=== PATIENT | male | born 1980 | race Caucasian/White ===

== ENCOUNTER 2016-11-25 05:39 | Outpatient (CLI) | payer OTHER ==
[~2016-11-25] VITALS: Ht 180.3 cm; Wt 86.2 kg
[2016-11-25] MEDS ORDERED: OMEP40CA36 PO (14:13)
== END 2016-11-25 14:22 ==
LOC: PREOP 05:39
PROVIDERS: ATTEND Surgery
DX: Z01.818 Encounter for other preprocedural examination (principal); Z11.2 Encounter for screening for other bacterial diseases; K21.9 Gastro-esophageal reflux disease without esophagitis; Z86.010 Personal history of colon polyps

== ENCOUNTER → 2016-11-29 | Day surgery (SDC) | payer OTHER ==
[~2016-11-29] VITALS: Ht 180.3 cm; Wt 86.2 kg
[~2016-11-29] MED LIST: HURRICAINE EXT TUBE (BENZOCAINE) ONE; HURRICAINE EXT TUBE (BENZOCAINE) XX PRN; MIDAZOLAM 2 MG/2 ML (VERSED) VIAL ONE; NS IV 500 ML 500 ML IV SCH; OMEP40CA36 PO; ONDANSETRON 4 MG/2 ML (SDV) Z0FRAN IVP ONE; ONDANSETRON 4 MG/2 ML (SDV) Z0FRAN ONE; fentaNYL INJECTION 100 MCG/2 ML AMP ONE
[2016-11-29 07:31] VITALS: BP 128/78
[2016-11-29] MEDS: fentaNYL INJECTION 100 MCG/2 ML AMP IVP PRN ×4 (08:02→08:20)
[2016-11-29] MEDS: MIDAZOLAM 2 MG/2 ML (VERSED) VIAL IVP PRN ×4 (08:03→08:17)
--- NOTE | 2016-11-29 08:07 | History & Physicial ---
History of Present Illness History of Present Illness Reason for visit/HPI to undergo an upper endoscopy regarding symptoms of reflux disease along with epigastric pain and concomitant colonoscopy for polyp surveillance. No family history of polyps or colon cancer. Date of Admission Date Seen by Provider: Nov 29, 2016 Time Seen by Provider: 08:05 I consulted on this patient on 11/29/16 08:05 Attending Physician Rancho Ramsay MD Admitting Physician Edyta Lindsay DO Consult Allergies and Home Medications Allergies Coded Allergies: No Known Drug Allergies (Unverified , 11/25/16) Home Medications Omeprazole 40 Mg Capsule.dr, 40 MG PO DAILY, (Reported) Past Votvvsv-Izncbd-Ghuhpi Hx Patient Social History Marrital Status: Employed/Student: employed Alcohol Use: Denies Use Recreational Drug Use: No Smoking Status: Former Smoker Recent Foreign Travel: No Contact w/other who traveled: No Recent Hopitalizations: No Immunizations Up To Date Date of Influenza Vaccine: Feb 02, 2016 Seasonal Allergies Seasonal Allergies: No Surgeries HX Surgeries: Yes (WISDOM TEETH) Respiratory Hx Respiratory Disorders: No Cardiovascular Hx Cardiovascular Disorders: No Neurological Hx Neurological Disorders: No Reproductive System Hx Reproductive Disorders: No Sexually Transmitted Disease: No HIV/AIDS: No Genitourinary Hx Genitourinary Disorders: No Gastrointestinal Hx Gastrointestinal Disorders: Yes Gastrointestinal Disorders: Gastroesophageal Reflux, Polyps Musculoskeletal Hx Musculoskeletal Disorders: No Endocrine Hx Endocrine Disorders: No HEENT HX ENT Disorders: No Loss of Vision: Denies Hearing Impairment: Denies Cancer Hx Cancer: No Psychosocial Hx Psychiatric Problems: No Integumentary HX Skin/Integumentary Disorder: No Blood Transfusions Hx Blood Disorders: No Adverse Reaction to a Blood Tr: No (N/A) Constitutional: no symptoms reported EENTM: no symptoms reported Respiratory: no symptoms reported Cardiovascular: no symptoms reported Gastrointestinal: abdominal pain (RUQ), heartburn Genitourinary: no symptoms reported Musculoskeletal: no symptoms reported Skin: no symptoms reported Psychiatric/Neurological: No Symptoms Reported Physical Exam Vital Signs Vital Sign - Last 12Hours 11/29/16 07:31 Temp 96.7 Pulse 71 Resp 20 B/P (MAP) 128/78 Pulse Ox 100 O2 Delivery Room Air Capillary Refill : General Appearance: No Apparent Distress HEENT: Normal ENT Inspection Neck: Normal Inspection Respiratory: Lungs Clear Cardiovascular: Regular Rate, Rhythm Gastrointestinal: Non Tender, Soft Rectal: Deferred Extremity: Normal Inspection Neurologic/Psychiatric: Alert, Oriented x3 Skin: Warm/Dry Assessment/Plan Assessment and Plan gentleman with symptoms of gastroesophageal reflux disease and a personal history of polyps. Details of upper endoscopy and colonoscopy reviewed thoroughly. Iatrogenic perforation and post polypectomy bleeding discussed in detail. Seems to be in agreement to proceed. Problems: RANCHO RAMSAY MD Nov 29, 2016 8:07 am
--- NOTE | 2016-11-29 08:07 | Conscious Sedation/ASA ---
Conscious Sedation Pre-Proced Time Reviewed: 08:07 ASA Class: 2 Airway Mallampati Classification: ([place] appropriate class) I. II. III, IV Lungs Heart ASA score ASA 1: a normal healthy patient ASA 2: a patient with a mild systemic disease (mid diabetes, controlled hypertension, obesity ASA 3: a patient with a severe systemic disease that limits activity (angina , COPD, prior Myocardial infarction) ASA 4: a patient with an incapacitating disease that is a constant threat to life (CHF, renal failure) ASA 5: a moribund patient not expected to survive 24 hrs. (ruptured aneurysm) ASA 6: a declared brain patient whose organs are being harvested. For emergent operations, add the letter E after the classification Grade 1 Sedation Plan: Discussed options with patient/fam Note The patient is an appropriate candidate to undergo the planned procedure, sedation, and anesthesia. The patient immediately re-assessed prior to indication. RANCHO JACKSON MD Nov 29, 2016 8:07 am
--- NOTE | 2016-11-29 08:35 | Endo Procedure Record ---
Endo Procedure Report Date of Procedure Nov 29, 2016 Surgeon (s) RANCHO JACKSON MD Post Procedure/Op Diagnosis EGD: Grade 2 esophagitis and distal gastritis Normal colonoscopy Procedure Performed EGD with biopsy of GE junction and antrum. Colonoscopy to cecum Description of Procedure Anesthesia Type: Conscious Sedation Specimen(s) collected/removed antral mucosa and mucosa of GE junction Description of the Procedure Indication for procedure: This gentleman came in for an endoscopic assessment of symptoms of reflux disease, along with concomitant colonoscopy regarding a personal history of polyps in the past. Informed consent was obtained after reviewing the procedures in detail. Description of the procedures: EGD: He was placed in left lateral decubitus position and his vital signs were monitored. Conscious sedation was achieved using Versed and fentanyl. The flexible gastroscope was introduced down the esophagus, past the stomach, into the proximal duodenum. Findings: Esophagus: Grade 2 esophagitis with a short hiatal hernia. Biopsy of the GE junction was obtained to rule out Krishnamurthy's changes. Stomach: Mild distal gastritis. Biopsy was obtained for Helicobacter status. Proximal duodenum: Normal. He tolerated the procedure well and was turned around in preparation for colonoscopy. Impression: Symptoms of reflux disease. Grade 2 esophagitis. Helicobacter status pending. Colonoscopy: Examination of the perianal area revealed external hemorrhoids and skin tags. Digital examination was unremarkable. The colonoscope was then introduced into the rectum and advanced all the way up to the cecum. Scope was then withdrawn slowly and the mucosa examined in a systematic fashion. There was no abnormality. He tolerated both procedures well and was taken to the nursing area in a stable condition. Impression: Personal history of polyps. No recurrence this time. Recommend repeating in 5 years. Copies To: NEYMAR MARES XAVIER M MD Nov 29, 2016 8:35 am
--- NOTE | 2016-11-29 08:37 | Discharge Inst-Simple/Standard ---
Discharge Inst-Standard Discharge Medications New, Converted or Re-Newed RX: Other Patient Instructions/Follow Up Plan of Care/Instructions/FU: increase omeprazole to twice a day. Repeat colonoscopy in 5 years. Activity as Tolerated: Yes Discharge Diet: No Restrictions RANCHO JACKSON MD Nov 29, 2016 8:37 am
[2016-11-29 08:50] VITALS: BP 119/71
[2016-11-29 09:40] VITALS: BP 118/78
[2016-11-29 09:50] VITALS: BP 118/78
== END ==
LOC: ENDO 06:30
PROVIDERS: ATTEND Surgery
DX: K21.0 Gastro-esophageal reflux disease with esophagitis (principal); K29.70 Gastritis, unspecified, without bleeding; Z86.010 Personal history of colon polyps; Z87.891 Personal history of nicotine dependence

== ENCOUNTER → 2016-11-30 | Outpatient (CLI) | payer OTHER ==
[~2016-11-30] MED LIST changes: -HURRICAINE EXT TUBE (BENZOCAINE) ONE; -HURRICAINE EXT TUBE (BENZOCAINE) XX PRN; -MIDAZOLAM 2 MG/2 ML (VERSED) VIAL ONE; -NS IV 500 ML 500 ML IV SCH; -ONDANSETRON 4 MG/2 ML (SDV) Z0FRAN IVP ONE; -ONDANSETRON 4 MG/2 ML (SDV) Z0FRAN ONE; -fentaNYL INJECTION 100 MCG/2 ML AMP ONE
--- NOTE | 2016-11-30 14:47 | Diagnostic Imaging Report ---
PROCEDURE: CT abdomen and pelvis without contrast. TECHNIQUE: Multiple contiguous axial images were obtained through the abdomen and pelvis without the use of intravenous contrast. INDICATION: Mid abdominal pain. FINDINGS: The lung bases appear clear. The liver, the gallbladder, the spleen, the pancreas, and adrenal glands appear unremarkable. No urinary tract stones are seen. No hydronephrosis. There is no bowel obstruction. The appendix is normal. There is no significant free fluid or fluid collection in the abdomen or pelvis. The abdominal aorta is normal in caliber. No para-aortic significantly enlarged lymph nodes seen. There is significant degenerative change at the L5-S1 disc. IMPRESSION: No urinary tract stones. The appendix is normal. Dictated by: Dictated on workstation # [id number]
== END ==
LOC: RAD 14:07
PROVIDERS: ATTEND Family Medicine
DX: R10.84 Generalized abdominal pain (principal); M47.816 Spondylosis without myelopathy or radiculopathy, lumbar region
CPT/HCPCS: 74176